=== PATIENT | male | born 1960 | race American Indian/Alaskan Native ===

== ENCOUNTER 2020-11-10 11:24 | Emergency (ER) | payer OTHER, SELFPAY ==
[2020-11-10 11:37] VITALS: BP 156/75; PULSE 88; RESP 22; TEMP 37.1; O2SAT 97
[2020-11-10 11:40] VITALS: BP 148/78; PULSE 88; RESP 24; TEMP 37.1; O2SAT 96
--- NOTE | 2020-11-10 11:47 | DI.RAD.S_ITS ---
PROCEDURE: XR CHEST 1V INDICATIONS: Flu like symptoms TECHNIQUE: One view of the chest was acquired. COMPARISON: None. FINDINGS: Surgical changes and devices: None. Lungs and pleura: Lungs are clear. No pleural effusions or pneumothorax. Mediastinum: Mediastinal contours appear normal. Heart size is normal. Bones and chest wall: No suspicious bony lesions. Overlying soft tissues appear unremarkable. IMPRESSION: Portable chest within normal limits. If there is clinical concern for a developing pulmonary process, a short-term followup chest series (with PA and lateral views, performed in deep inspiration) is suggested for further evaluation. Dictated by: Stephen Marley M.D. on 11/10/2020 at 11:16 Approved by: Stephen Marley M.D. on 11/10/2020 at 11:16
[2020-11-10] MEDS: SODIUM CHLORIDE 0.9% 1,000 ML 1000 ML IV (12:16)
[2020-11-10] MEDS: ONDANSETRON 4 MG/2 ML INJ IV (12:16)
[2020-11-10 12:26] VITALS: PULSE 81; O2SAT 96
[2020-11-10 12:30] VITALS: BP 134/71; PULSE 76; O2SAT 96
[2020-11-10 13:00] VITALS: BP 161/79; PULSE 83; O2SAT 97
[2020-11-10 13:07] LABS: COVID19 -Nasal RAPID POSITIVE (Negative)
--- NOTE | 2020-11-10 13:22 | ED_ITS ---
HPI - URI/Sore Throat <Corbin Alcantar PA-C - Last Filed: 11/10/20 13:32> General Chief Complaint: Upper Respiratory Symptoms Stated Complaint: Headache, cough, weakness Time Seen by Provider: 11/10/20 11:58 Source: patient Mode of arrival: Ambulatory Limitations: no limitations History of Present Illness HPI Narrative: 60-year-old male with no reported past medical history presents to the ED with 6 days of cough, fever. Patient also endorses a generalized headache, 1 episode of diarrhea, all over body aches. Patient endorses being adequately hydrated. Denies chest pain, shortness of breath, nausea, vomiting, dysuria, lightheadedness, dizziness, syncope. Patient unvaccinated for COVID- 19. Related Data Home Medications Medication Instructions Recorded Confirmed Advil 200 mg PO Q8HR PRN 11/10/20 11/10/20 Allergies Allergy/AdvReac Type Severity Reaction Status Date / Time No Known Drug Allergies Allergy Verified 11/10/20 11:43 Review of Systems <Corbin Alcantar PA-C - Last Filed: 11/10/20 13:32> Constitutional Constitutional: Reports chills, Reports fatigue, Reports fever(s), Denies frequent falls, Reports headache(s), Denies lethargy and Denies weakness Eyes Eyes: Denies change in vision, Denies eye discharge, Denies irritation and Denies loss of vision ENT Ears, Nose, Mouth, and Throat: Denies change in voice, Denies dizziness, Reports headache(s), Denies neck pain, Denies sore throat and Denies throat swelling Cardiovascular Cardiovascular: Denies chest pain, Denies irregular heart rhythm, Denies lightheadedness, Denies palpitations, Denies dyspnea, Denies dyspnea on exertion and Denies orthopnea Respiratory Respiratory: Reports cough, Denies dyspnea, Denies dyspnea on exertion and Denies wheezing Gastrointestinal Gastrointestinal: Denies abdominal pain, Denies change in bowel habits, Reports diarrhea, Denies nausea and Denies vomiting Musculoskeletal Musculoskeletal: Denies neck pain and Denies numbness Integumentary/Breasts Skin/Breast: Denies pruritus, Denies erythema, Denies rash and Denies wounds Neurologic Neurologic: Denies behavioral changes, Denies confusion, Denies dizziness, Denies frequent falls, Reports headache(s), Denies loss of vision, Denies numbness and Denies weakness Psychiatric Psychiatric: Denies anxiety, Denies behavioral changes, Denies confusion, Denies depression, Denies homicidal ideation and Denies suicidal ideation Endocrine Endocrine: Reports fatigue, Denies flushing and Denies palpitations Hematologic/Lymphatic Hematologic/Lymphatic: Denies easy bruising Allergic/Immunologic Allergic/Immunologic: Denies urticaria, Denies throat swelling and Denies wheezing Patient History <Corbin Alcantar PA-C - Last Filed: 11/10/20 13:32> Social History Smoking Status: Never smoker Smoking Status: Never smoker alcohol intake frequency: 0-2 drinks per day Substance Use Type: does not use Exam <Corbin Alcantar PA-C - Last Filed: 11/10/20 13:32> Initial Vital Signs Initial Vital Signs: Vital Signs Temperature 98.8 F 11/10/20 11:37 Pulse Rate 88 11/10/20 11:37 Respiratory Rate 22 11/10/20 11:37 Blood Pressure 156/75 H 11/10/20 11:37 Pulse Oximetry 97 11/10/20 11:37 Const General: cooperative HENMT Head: normocephalic and atraumatic Ears: external ears normal and TM's normal bilaterally Nose: external nose normal and No nasal discharge Face and sinus: sinuses nontender, face symmetric, no sinus tenderness and No dry mucous membranes Mouth: oral mucosae normal and moist mucous membranes Teeth and gingiva: dentition normal Throat: tonsils normal and uvula midline Eyes General: appearance normal, both eyes and all related structures Eyelids: eyelids normal Conjunctivae: conjunctivae normal Sclera: sclerae normal Pupils: PERRL EOM: EOM intact bilaterally Neck Neck: normal visual inspection, trachea midline, No lymphadenopathy, No midline deformity and No JVD Lymphatic: No lymphedema Chest Chest: normal inspection of the chest Resp Effort & Inspection: normal respiratory effort, able to speak in complete sentences, no respiratory distress and no use of accessory muscles Auscultation: clear to auscultation bilaterally, no rales, no rhonchi and no wheezes Cardio Rate: regular rate Rhythm: regular rhythm Heart Sounds: no click, no gallops, no murmurs and no rubs Pulses: normal peripheral pulses GI Inspection: non-distended Palpation: soft, no hepatosplenomegaly, No guarding, No pulsatile mass and No tender Auscultation: normal bowel sounds Back/Spine/Pelvis Back: No CVA tenderness Cervical Spine: cervical ROM normal and No pain with cervical ROM Thoracic/Lumbar Spine: thoracic and lumbar spine normal to inspection Skin General: no rashes or lesions noted, No jaundice and No petechiae Neuro General: patient alert, patient oriented x3, gait normal and no focal motor deficits Speech: speech normal Extrem General: full ROM, no clubbing, cyanosis or edema, no pedal edema and no calf tenderness Psych Appearance: well kempt Mental Status: mental status grossly normal Attitude: cooperative Thought Content: normal and suicidality Judgment: judgment good <Cody Newman DO - Last Filed: 11/10/20 16:19> Initial Vital Signs Initial Vital Signs: Vital Signs Temperature 98.8 F 11/10/20 11:37 Pulse Rate 88 11/10/20 11:37 Respiratory Rate 22 11/10/20 11:37 Blood Pressure 156/75 H 11/10/20 11:37 Pulse Oximetry 97 11/10/20 11:37 Course <Corbin Alcantar PA-C - Last Filed: 11/10/20 13:32> Course Course Narrative: COVID 19 positive, stable. Will discharge home with ED return precautions. Orders Ordered: ED Orders 11/10/20 11:42 COVID19 -Nasal swab/Pre-Proc Stat 11/10/20 11:47 XR chest 1V Stat Discontinued Medications Sodium Chloride (Normal Saline 0.9%) 1,000 mls @ 1,000 mls/hr IV BOLUS ONE Stop: 11/10/20 12:46 Last Infusion: 11/10/20 13:16 Dose: 0 mls/hr Documented by: Admin: 11/10/20 12:16 Dose: 1,000 mls/hr Documented by: YEFRI Ondansetron HCl (Ondansetron 4 Mg/2 Ml Inj) 4 mg IV NOW ONE Stop: 11/10/20 11:48 Last Admin: 11/10/20 12:16 Dose: 4 mg Documented by: YEFRI Vital Signs Vital signs: Vital Signs - 8 hr 11/10/20 11:37 11/10/20 11:40 11/10/20 12:26 Temperature 98.8 F 98.8 F Pulse Rate 88 88 81 Respiratory Rate 22 24 Blood Pressure 156/75 H 148/78 H Pulse Oximetry 97 96 96 11/10/20 12:30 11/10/20 13:00 Temperature Pulse Rate 76 83 Respiratory Rate Blood Pressure 134/71 161/79 H Pulse Oximetry 96 97 <Cody Newman DO - Last Filed: 11/10/20 16:19> Orders Ordered: ED Orders 11/10/20 11:42 COVID19 -Nasal swab/Pre-Proc Stat 11/10/20 11:47 XR chest 1V Stat Discontinued Medications Sodium Chloride (Normal Saline 0.9%) 1,000 mls @ 1,000 mls/hr IV BOLUS ONE Stop: 11/10/20 12:46 Last Infusion: 11/10/20 13:16 Dose: 0 mls/hr Documented by: Admin: 11/10/20 12:16 Dose: 1,000 mls/hr Documented by: YEFRI Ondansetron HCl (Ondansetron 4 Mg/2 Ml Inj) 4 mg IV NOW ONE Stop: 11/10/20 11:48 Last Admin: 11/10/20 12:16 Dose: 4 mg Documented by: YEFRI Vital Signs Vital signs: Vital Signs - 8 hr 11/10/20 11:37 11/10/20 11:40 11/10/20 12:26 Temperature 98.8 F 98.8 F Pulse Rate 88 88 81 Respiratory Rate 22 24 Blood Pressure 156/75 H 148/78 H Pulse Oximetry 97 96 96 11/10/20 12:30 11/10/20 13:00 Temperature Pulse Rate 76 83 Respiratory Rate Blood Pressure 134/71 161/79 H Pulse Oximetry 96 97 MDM - URI/Sore Throat <Corbin Alcantar PA-C - Last Filed: 11/10/20 13:32> Lab Data Attestation: I reviewed the patient's lab results. Lab results narrative: Covid-19 positive Labs: Lab Results 11/10/20 Range/Units 11:42 SARS-CoV-2 (PCR) Positive H (Negative) Imaging Data Chest x-ray: Radiologist's Impression: PROCEDURE: XR CHEST 1V INDICATIONS: Flu like symptoms TECHNIQUE: One view of the chest was acquired. COMPARISON: None. FINDINGS: Surgical changes and devices: None. Lungs and pleura: Lungs are clear. No pleural effusions or pneumothorax. Mediastinum: Mediastinal contours appear normal. Heart size is normal. Bones and chest wall: No suspicious bony lesions. Overlying soft tissues appear unremarkable. IMPRESSION: Portable chest within normal limits. If there is clinical concern for a developing pulmonary process, a short-term followup chest series (with PA and lateral views, performed in deep inspiration) is suggested for further evaluation. Dictated by: Stephen Marley M.D. on 11/10/2020 at 11:16 Approved by: Stephen Marley M.D. on 11/10/2020 at 11:16 MDM Narrative Medical decision making narrative: 60-year-old male with no reported past medical history presents to the ED with 6 days of cough, fever. Concern for COVID-19 infection versus other viral syndrome. Will obtain chest x-ray, COVID- 19 test. Will give Zofran and IV fluids for symptoms. Will reassess. Likely discharge home with ED return precautions. <Cody Newman DO - Last Filed: 11/10/20 16:19> Lab Data Labs: Lab Results 11/10/20 Range/Units 11:42 SARS-CoV-2 (PCR) Positive H (Negative) Discharge Plan Departure Patient Disposition: Home Clinical Impression: COVID-19 Instructions: DI for COVID-19 (Suspected or Confirmed ) Activity Restrictions/Additional Instructions: You have been diagnosed positive for COVID 19 infection in the ED today. You may take Tylenol or ibuprofen for symptoms. Stay hydrated by drinking lots of water. Return to the ED if your symptoms worsen, you have trouble breathing, you experience chest pain. Isolate and continue to wear masks past. Prescriptions: No Action Advil 200 mg PO Q8HR PRN (Reason: Pain (Scale Score 4-6)) RF: 0 <DO Twin Roe Last Filed: 11/10/20 16:19> Cosign ED Attending Cosignature Attestation: Dr Newman Co-Sign Statement: I was available for consultation during this patient's emergency department visit. This chart is signed by myself for administrative purposes only. I did not have direct contact with this patient during this visit. They were seen independently by the APC.
== END 2020-11-10 13:24 | disposition home or self-care (01) ==
PROVIDERS: Emergency Medicine; Emergency Provider Student in an Organized Health Care Education/Training Program
DX: U07.1 COVID-19 (principal); R50.9 Fever, unspecified; R05 Cough
CPT/HCPCS: 36415; 71045; 87635; 96361; 96374; 99284; C9803; J2405

== ENCOUNTER 2020-11-13 10:43 | Emergency (ER) | payer OTHER, SELFPAY ==
[2020-11-13 10:54] VITALS: BP 167/75; PULSE 82; RESP 20; TEMP 36.7; O2SAT 100
--- NOTE | 2020-11-13 11:03 | ED_ITS ---
HPI - General Adult General Chief complaint: Upper Respiratory Symptoms Stated complaint: Covid+ lungs hurt when coughing Time Seen by Provider: 11/13/20 10:49 Source: patient Mode of arrival: Ambulatory Limitations: no limitations History of Present Illness HPI narrative: Patient is a 60-year-old male who was seen here in the emergency department a couple days ago was diagnosed with COVID-19. Was subsequently di scharged home. Since that time he states that he has continued to have a cough. This occurs mainly at night. He informed nursing staff in triage he has been having fevers at night but told me that he is not having fevers. No chest pain. He is here because of the continued cough. Related Data Home Medications Medication Instructions Recorded Confirmed Advil 200 mg PO Q8HR PRN 11/10/20 11/10/20 Previous Rx's Medication Instructions Recorded benzonatate 100 mg capsule 100 mg PO TID PRN #21 cap 11/13/20 (Testariq Grajeda) Allergies Allergy/AdvReac Type Severity Reaction Status Date / Time No Known Drug Allergies Allergy Verified 11/10/20 11:43 Review of Systems Constitutional Constitutional: Denies fever(s) Cardiovascular Cardiovascular: Denies chest pain Respiratory Respiratory: Reports cough Integumentary/Breasts Skin/Breast: Reports system reviewed and no additional complaints, except as documented Neurologic Neurologic: Reports system reviewed and no additional complaints, except as documented Hematologic/Lymphatic On Anticoagulants: No Patient History Medical History COVID-19 Social History Smoking Status: Never smoker Smoking Status: Never smoker alcohol intake frequency: 0-2 drinks per day Substance Use Type: does not use Exam Initial Vital Signs Initial Vital Signs: Vital Signs Temperature 98.1 F 11/13/20 10:54 Pulse Rate 82 11/13/20 10:54 Respiratory Rate 20 11/13/20 10:54 Blood Pressure 167/75 H 11/13/20 10:54 Pulse Oximetry 100 11/13/20 10:54 HENMT Head: normal to inspection and normocephalic Resp Effort & Inspection: normal respiratory effort Auscultation: clear to auscultation bilaterally Cardio Rate: regular rate Rhythm: regular rhythm Skin General: no rashes or lesions noted Neuro General: patient alert, patient awake, patient oriented x3 and moves all extremities Extrem General: normal to inspection and capillary refill normal Psych Appearance: grossly normal and well kempt Course Vital Signs Vital signs: Vital Signs - 8 hr 11/13/20 10:54 Temperature 98.1 F Pulse Rate 82 Respiratory Rate 20 Blood Pressure 167/75 H Pulse Oximetry 100 Medical Decision Making MDM Narrative Medical decision making narrative: Patient is not hypoxic. Has clear lung exam. No chest pain. Unfortunately his cough is related to the COVID-19. We will give a prescription for Tessalon Perles although I have low suspicion that this is going to help his symptoms. I did discuss this with him. We did discuss return precautions and follow-up instructions. He expressed understanding and agreement. Discharge Plan Departure Patient Disposition: Home Clinical Impression: COVID-19, Cough Instructions: Coronavirus Disease 2019 Activity Restrictions/Additional Instructions: You do need to continue to quarantine yourself per the CDC guidelines. Unfortunately the coronavirus causes cough. We can try some cough medication which was sent to [facility]. You can use it as directed. There is a chance that this may not help all that much given the nature of the illness. Contact your primary doctor for follow-up. Return to the emergency department for any worsening symptoms. Prescriptions: New benzonatate [Tessalon Perles] 100 mg capsule 100 mg PO TID PRN (Reason: cough) Qty: 21 RF: 0 No Action Advil 200 mg PO Q8HR PRN (Reason: Pain (Scale Score 4-6)) RF: 0
== END 2020-11-13 11:30 | disposition home or self-care (01) ==
PROVIDERS: Emergency Provider Emergency Medicine
DX: U07.1 COVID-19 (principal); R05 Cough
CPT/HCPCS: 99281

== ENCOUNTER 2020-11-18 08:45 | Emergency (ER) | payer OTHER, SELFPAY ==
[2020-11-18 09:02] VITALS: BP 134/67; PULSE 75; RESP 18; TEMP 36.9; O2SAT 97; BMI 30.4
--- NOTE | 2020-11-18 09:14 | DI.RAD.S_ITS ---
PROCEDURE: XR CHEST 2V INDICATIONS: Cough TECHNIQUE: 2 views of the chest were acquired. COMPARISON: [facility], CR, XR CHEST 1V, 11/10/2020, 11:52. FINDINGS: Surgical changes and devices: None. Lungs and pleura: Low lung volumes. Bilateral patchy airspace opacity. No pleural effusions or pneumothorax. Mediastinum: Mediastinal contours are normal. Heart size is normal. Bones and chest wall: No suspicious bony abnormalities. Soft tissues appear unremarkable. IMPRESSION: Bilateral patchy airspace opacity. Suspect multifocal pneumonia. COVID-19 could have this appearance. Dictated by: Navjot Frias M.D. on 11/18/2020 at 8:41 Approved by: Navjot Frias M.D. on 11/18/2020 at 8:42
[2020-11-18 09:33] LABS: COVID19 -Nasal RAPID POSITIVE (Negative)
--- NOTE | 2020-11-18 09:58 | ED_ITS ---
HPI - URI/Sore Throat General Chief Complaint: Upper Respiratory Symptoms Stated Complaint: cough Time Seen by Provider: 11/18/20 09:58 Source: patient Mode of arrival: Ambulatory Limitations: no limitations History of Present Illness HPI Narrative: This is a 60-year-old male who comes emergency department with known COVID infection. Patient states he has had about 10 days of symptoms. Patient states he has had a cough for about 19 days but some he has felt a little bit generally unwell the last 7-10 days. He denies fevers. He denies shortness of breath. He denies chest pain except when he is coughing. He states when he stops coughing resolved. He denies nausea but states that he will have posttussive emesis. Patient states he is able to keep food down +12 hours. He has had normal bowel movements. No urinary issues. No new swelling in his extremities. No lightheadedness or passing out. He states he does not take any medications daily. He denies any prior surgeries. He denies any tobacco, alcohol or illicit drug abuse. He is unvaccinated. His has also been diagnosed is currently hospitalized here as of last night. Related Data Home Medications Medication Instructions Recorded Confirmed Advil 200 mg PO Q8HR PRN 11/10/20 11/10/20 Previous Rx's Medication Instructions Recorded benzonatate 100 mg capsule 100 mg PO TID PRN #21 cap 11/13/20 (Testariq Grajeda) codeine 10 mg-guaifenesin 100 mg/5 5 ml PO Q6H PRN #118 ml 11/18/20 mL oral liquid Allergies Allergy/AdvReac Type Severity Reaction Status Date / Time No Known Drug Allergies Allergy Verified 11/18/20 09:02 Review of Systems Review of Systems ROS Unobtainable: All systems reviewed & are unremarkable except as noted in HPI and below Patient History Medical History COVID-19 Social History Smoking Status: Never smoker Smoking Status: Never smoker alcohol intake frequency: 0-2 drinks per day Substance Use Type: does not use Exam Narrative Exam Narrative: GENERAL: Alert and oriented x three, male in mild distress. HEENT: Head normocephalic, atraumatic, EOMI, pupils reactive, face symmetric, moist mucous membranes NECK: Supple, full range of motion CARDIOVASCULAR: Regular rate and rhythm without murmurs, rubs or gallops. RESPIRATORY: Breath sounds equal bilaterally, no wheezes rales or rhonchi. ABDOMEN: Soft, nontender. Normoactive bowel sounds all 4 quadrants. No guarding or rebound, rigidity, no mass : No CVA tenderness EXTREMITIES: Normal range of motion, no clubbing or edema. Neurovascularly intact NEUROLOGICAL: Cranial nerves II through XII grossly intact. Moving all extremities SKIN: Warm, dry, no petechiae, no rashes or lesions. Initial Vital Signs Initial Vital Signs: Vital Signs Temperature 98.4 F 11/18/20 09:02 Pulse Rate 75 11/18/20 09:02 Respiratory Rate 18 11/18/20 09:02 Blood Pressure 134/67 11/18/20 09:02 Pulse Oximetry 97 11/18/20 09:02 Course Orders Ordered: ED Orders 11/18/20 09:06 COVID19 -Nasal swab/Pre-Proc Stat 11/18/20 09:14 Chest [XR chest 2V] Stat Vital Signs Vital signs: Vital Signs - 8 hr 11/18/20 09:02 11/18/20 10:29 Temperature 98.4 F Pulse Rate 75 74 Respiratory Rate 18 18 Blood Pressure 134/67 130/74 Pulse Oximetry 97 95 MDM - URI/Sore Throat Lab Data Labs: Lab Results 11/18/20 Range/Units 09:06 SARS-CoV-2 (PCR) Positive H (Negative) Imaging Data Chest x-ray: Radiologist's Impression: [address] [address] XRay Report Signed Patient: Anurag Lua MR#: [id number] : 1960 Acct:[id number] Age/Sex: 60 / M Date of Service: 11/18/20 Loc: ED Accession Number: [id number] ?? Procedure: XR chest 2V Ordering Provider: Riana Huggins D.O. PROCEDURE:? XR CHEST 2V ? INDICATIONS:? Cough ? TECHNIQUE:? 2 views of the chest were acquired.? ? COMPARISON:? [facility], KAYLA, XR CHEST 1V, 11/10/2020, 11:52. ? FINDINGS:? ? Surgical changes and devices:? None.? ? Lungs and pleura:? Low lung volumes.? Bilateral patchy airspace opacity.? No pleural effusions or pneumothorax.? ? Mediastinum:? Mediastinal contours are normal.? Heart size is normal.? ? Bones and chest wall:? No suspicious bony abnormalities.? Soft tissues appear unremarkable.? ? IMPRESSION:? Bilateral patchy airspace opacity.? Suspect multifocal pneumonia.? COVID-19 coul d have this appearance. ? ? Dictated by: Navjot Frias M.D. on 11/18/2020 at 8:41 ? ? Approved by: Navjot Frias M.D. on 11/18/2020 at 8:42?? MDM Narrative Medical decision making narrative: This is a 60-year-old male with known COVID. Patient still continues to test positive today. He has had a persistent cough with occasional posttussive emesis. Chest x-ray does show some COVID changes. His vital signs are reassuring. Plan for watchful waiting. Patient was encouraged to obtain a pulse ox to monitor her his oxygen level. Discharge Plan Departure Patient Disposition: Home Clinical Impression: Pneumonia due to 2019 novel coronavirus Instructions: DI for COVID-19 (Suspected or Confirmed ) Activity Restrictions/Additional Instructions: *You have been diagnosed with covid pneumonia If you wish you may obtain a pulse oximeter for use at home to monitor. Please return to the ER if your pulse oximeter shows an O2 saturation less than 94%. Continue home medications as prescribed. You may take cough medication as prescribed this medication does have some narcotic in it. This medication can make you sleepy do not drive, perform hazardous activities or make any major decisions while taking it. This medication will make you constipated please take a stool softener once to twice daily until stools are soft and regular. Prescription sent to [facility] in [place]. Please return for new or worsening chest pain, shortness of breath, lightheadedness or passing out, new swelling of her extremities, rash or skin changes or other new or concerning symptoms. *What to do: * per recommendations from the CDC and the [facility] Department of Health * stay home except to get medical care. Restrict activities outside your home, except for getting medical care. Do not go to work, school, or public areas. Avoid using public transportation, ride sharing, or taxis. * separate yourself from other people in your home. * call ahead before visiting your doctor * Wear a face mask * Cover your coughs and sneezes * Clean your hands often * Avoid sharing household items * Clean all high-touch services every day * Monitor your symptoms and seek prompt medical attention if your illness is worsening, particularly with difficulty in breathing. Discussed continuing home isolation * for individuals with symptoms who are confirmed or suspected cases of COVID-19 and are directed to care for themselves at home, discontinue home isolation under the following conditions: 1. At least 72 hours have passed since recovery, defined as resolution of fever without the use of fever reducing medications, and improvement in respiratory symptoms (cough, shortness of breath) AND, 2. At least 7 days have passed since symptoms 1st appeared Individuals with laboratory confirmed COVID-19 who have not had any symptoms may discontinue home isolation when at least 7 days have passed since the date of their 1st COVID-19 diagnostic test and have had no subsequent illness Prescriptions: New codeine-guaifenesin 10-100 mg/5 mL liquid 5 ml PO Q6H PRN (Reason: pain) Qty: 118 RF: 0 No Action Advil 200 mg PO Q8HR PRN (Reason: Pain (Scale Score 4-6)) RF: 0 benzonatate [Tessalon Perles] 100 mg capsule 100 mg PO TID PRN (Reason: cough) Qty: 21 RF: 0
[2020-11-18 10:29] VITALS: BP 130/74; PULSE 74; RESP 18; O2SAT 95
== END 2020-11-18 10:32 | disposition home or self-care (01) ==
PROVIDERS: Emergency Provider Emergency Medicine
DX: U07.1 COVID-19 (principal); J12.82 Pneumonia due to coronavirus disease 2019
CPT/HCPCS: 71046; 87635; 99283; C9803

== ENCOUNTER → 2021-10-20 14:17 | Outpatient (CLI) | payer OTHER, SELFPAY ==
--- NOTE | 2021-10-20 14:22 | DI.RAD.S_ITS ---
PROCEDURE: XR SHOULDER LT MIN 2V INDICATIONS: Traumatic injury left shoulder, left lower leg TECHNIQUE: 3 views of the shoulder were acquired. COMPARISON: None. FINDINGS: Bones: No fractures or dislocations. No suspicious bony lesions. Visualized ribs appear intact. AC joint degenerative changes are present. Soft tissues: No suspicious soft tissue calcifications. IMPRESSION: No acute osseous abnormality. If symptoms persist, follow-up radiographs and/or CT may be helpful for further evaluation. Dictated by: Kenny Sykes M.D. on 10/20/2021 at 22:12 Approved by: Kenny Sykes M.D. on 10/20/2021 at 22:14
--- NOTE | 2021-10-20 14:22 | DI.RAD.S_ITS ---
PROCEDURE: XR CHEST 2V INDICATIONS: Traumatic injury left shoulder, left lower leg TECHNIQUE: 2 views of the chest were acquired. COMPARISON: [facility], CR, XR CHEST 2V, 11/18/2020, 9:11. FINDINGS: Surgical changes and devices: None. Lungs and pleura: Lungs are clear. No pleural effusions or pneumothorax. Mediastinum: Mediastinal contours are normal. Heart size is normal. Bones and chest wall: No suspicious bony abnormalities. Soft tissues appear unremarkable. IMPRESSION: No acute cardiopulmonary disease. Dictated by: Emilie Banks M.D. on 10/20/2021 at 15:39 Approved by: Emilie Banks M.D. on 10/20/2021 at 15:39
--- NOTE | 2021-10-20 14:22 | DI.RAD.S_ITS ---
PROCEDURE: XR TIBIA FIBULA LT 2V INDICATIONS: Traumatic injury left shoulder, left lower leg TECHNIQUE: 2 views of the tibia and fibula were acquired. COMPARISON: None. FINDINGS: Bones: No fractures or dislocations. No suspicious bony lesions. Soft tissues: No suspicious soft tissue calcifications or masses. There is a metallic foreign body that is either on the patient or in the medial lower calf soft tissues. Degenerative arthritis of the knee. IMPRESSION: Question metallic foreign body. Degenerative arthritis of the knee. Dictated by: Tutu Donahue M.D. on 10/20/2021 at 16:15 Approved by: Tutu Donahue M.D. on 10/20/2021 at 16:16
== END ==
PROVIDERS: PCP Family Medicine; Referring Provider Family Medicine; Visit Provider Family Medicine
DX: M25.512 Pain in left shoulder (principal); M17.12 Unilateral primary osteoarthritis, left knee; M79.605 Pain in left leg; Z77.090 Contact with and (suspected) exposure to asbestos
CPT/HCPCS: 71046; 73030; 73590

== ENCOUNTER 2023-01-06 11:49 | Emergency (ER) | payer OTHER, SELFPAY ==
[2023-01-06 11:56] VITALS: BP 166/78; PULSE 73; RESP 18; TEMP 36.8; O2SAT 98; BMI 29.5
--- NOTE | 2023-01-06 12:02 | DI.RAD.S_ITS ---
PROCEDURE: XR KNEE RT 3V INDICATIONS: pain and swelling TECHNIQUE: 3 views of the knee were acquired. COMPARISON: None. FINDINGS: Bones: No acute fractures. Mild medial and lateral compartment joint space loss. Mild lateral patellar subluxation and prominent patellofemoral compartment joint space loss. Moderate tricompartment spurs. Soft tissues: Small joint effusion. Trace chondrocalcinosis seen in the medial and lateral compartments. IMPRESSION: 1. Small joint effusion of uncertain chronicity. 2. Patellofemoral compartment joint space loss and lateral patellar subluxation. Correlate clinically. 3. Tricompartment osteoarthritic change. Dictated by: Emilie Banks M.D. on 01/06/2023 at 12:57 Approved by: Emilie Banks M.D. on 01/06/2023 at 12:58
--- NOTE | 2023-01-06 13:38 | ED_ITS ---
HPI - Extremity Injury (Lower) <Bakari Reynolds PA-C - Last Filed: 01/06/23 14:12> General Chief Complaint: Extremity Injury, Lower Stated Complaint: R/knee pain/ swollen Time Seen by Provider: 01/06/23 13:37 History of Present Illness HPI Narrative: this is a 62-year-old male presenting to the emergency department complaining of right knee pain after working on his knees in the gravel yesterday. He states that he is got a somewhat chronic history of knee pain but worsened after working in his knees. Denies any numbness, rashes, decreases in range of motion, or any other concerning signs or symptoms. Related Data Home Medications Medication Instructions Recorded Confirmed Advil 200 mg PO Q8HR PRN Pain (Scale 11/10/20 07/23/22 Score 4-6) Previous Rx's Medication Instructions Recorded hydrocodone 5 mg-acetaminophen 325 1 tab PO TID PRN pain #20 tabs 10/20/21 mg tablet naproxen 500 mg tablet 500 mg PO BID PRN pain #30 tabs 10/20/21 indomethacin 50 mg capsule 50 mg PO TID PRN Pain #30 caps 07/23/22 methocarbamol 500 mg tablet 500 mg PO TID PRN muscle spasm #30 07/23/22 tabs Allergies Allergy/AdvReac Type Severity Reaction Status Date / Time No Known Drug Allergies Allergy Verified 01/06/23 12:01 Review of Systems <Bakari Reynolds PA-C - Last Filed: 01/06/23 14:12> Review of Systems Narrative: GENERAL: Denies chills, fatigue, malaise, fever, sweats. HEENT: Denies sinus pain, ear pain, sore throat, difficulty swallowing, dizziness. RESPIRATORY: Denies dyspnea, cough, wheezing, hemoptysis, sputum. CARDIOVASCULAR: Denies chest pain, palpitations, orthopnea, edema, GASTROINTESTINAL: Denies nausea, vomiting, abdominal pain, diarrhea, constipation, melena. : Denies dysuria, frequency, incontinence, hematuria, urinary retention. MUSCULOSKELETAL: Reports right knee pain, otherwise denies weakness, joint pain, or bony pain SKIN: Denies rash, skin lesions, or other NEUROLOGIC: Denies weakness, headache, numbness, change in speech, confusion, seizures, incoordination. PSYCHIATRIC: No concerning psychosocial issues. 12 point review of systems is negative except for those stated above Patient History <Bakari Reynolds PA-C - Last Filed: 01/06/23 14:12> Medical History Adhesive capsulitis COVID-19 History of asbestos exposure Left leg pain Left shoulder pain Family History Father Diabetes mellitus Brother Diabetes mellitus Kidney disease Sister Cancer Social History Smoking Status: Never smoker Smoking Status: Never smoker alcohol intake frequency: 0-2 drinks per day Substance Use Type: does not use Exam <Bakari Reynolds PA-C - Last Filed: 01/06/23 14:12> Narrative Exam Narrative: GENERAL: Well-developed patient, in mild distress. HEAD: Atraumatic. Normocephalic. EYES: Pupils equal round and reactive. Extraocular motions intact. No scleral icterus. No injection or drainage. ENT: Nose without bleeding, purulent drainage. Throat without erythema, tonsillar hypertrophy or exudate. Airway patent. NECK: Trachea midline. Non tender CARDIOVASCULAR: Regular rate and rhythm without murmurs, gallops, or rubs. RESPIRATORY: Clear to auscultation. Breath sounds equal bilaterally. No wheezes, rales, or rhonchi. GASTROINTESTINAL: Abdomen soft, non-tender, nondistended. EXTREMITIES: Generalized tenderness to palpation of the right knee, range of motion decreased secondary to pain, no joint stiffness No edema or joint tenderness. BACK: Nontender without deformity or crepitance. No flank tenderness. NEURO: AOx3. SKIN: No rash or erythema of visible areas Initial Vital Signs Initial Vital Signs: Vital Signs Temperature 98.3 F 01/06/23 11:56 Pulse Rate 73 01/06/23 11:56 Respiratory Rate 18 01/06/23 11:56 Blood Pressure 166/78 H 01/06/23 11:56 Pulse Oximetry 98 01/06/23 11:56 Oxygen Delivery Method Room Air 01/06/23 11:56 <Riana Huggins DO - Last Filed: 01/07/23 07:34> Initial Vital Signs Initial Vital Signs: Vital Signs Temperature 98.3 F 01/06/23 11:56 Pulse Rate 73 1105/23 11:56 Respiratory Rate 18 01/06/23 11:56 Blood Pressure 166/78 H 01/06/23 11:56 Pulse Oximetry 98 01/06/23 11:56 Oxygen Delivery Method Room Air 01/06/23 11:56 Course <Bakari Reynolds PA-C - Last Filed: 01/06/23 14:12> Orders Ordered: ED Orders 01/06/23 12:02 XR knee RT 3V Stat Vital Signs Vital signs: Vital Signs - 8 hr 01/06/23 11:56 Temperature 98.3 F Pulse Rate 73 Respiratory Rate 18 Blood Pressure 166/78 H Pulse Oximetry 98 Oxygen Delivery Method Room Air <Riana Huggins DO - Last Filed: 01/07/23 07:34> Orders Ordered: ED Orders 01/06/23 12:02 XR knee RT 3V Stat Vital Signs Vital signs: Vital Signs - 8 hr 01/06/23 11:56 Temperature 98.3 F Pulse Rate 73 Respiratory Rate 18 Blood Pressure 166/78 H Pulse Oximetry 98 Oxygen Delivery Method Room Air MDM - Extremity Injury (Lower) <Bakari Reynolds PA-C - Last Filed: 01/06/23 14:12> Imaging Data Extremity x-ray #1: Radiologist's Impression: [place] [address] XRay Report Signed Patient: Anurag Lua MR#: [id number] : 1960 Acct:[id number] Age/Sex: 62 / M Date of Service: 01/06/23 Loc: ED Accession Number: [id number] Procedure: XR knee RT 3V Ordering Provider: Riana Huggins D.O. PROCEDURE: XR KNEE RT 3V INDICATIONS: pain and swelling TECHNIQUE: 3 views of the knee were acquired. COMPARISON: None. FINDINGS: Bones: No acute fractures. Mild medial and lateral compartment joint space loss. Mild lateral patellar subluxation and prominent patellofemoral compartment joint space loss. Moderate tricompartment spurs. Soft tissues: Small joint effusion. Trace chondrocalcinosis seen in the medial and lateral compartments. IMPRESSION: 1. Small joint effusion of uncertain chronicity. 2. Patellofemoral compartment joint space loss and lateral patellar subluxation. Correlate clinically. 3. Tricompartment osteoarthritic change. Dictated by: Emilie Banks M.D. on 01/06/2023 at 12:57 Approved by: Emilie Banks M.D. on 01/06/2023 at 12:58 MDM Narrative Medical decision making narrative: MDM * differential diagnosis includes but not limited to patellar fracture, knee sprain, ligament injury * Prior records reviewed: Patient has not been here for similar symptoms in the past * My lab interpretation: None obtained * My imgaing interpretation: Right knee x-ray shows evidence of osteoarthritis and discussed possible patellar subluxation although on exam no concern for any kind of patellar dislocation * Clinical Decision Rules/Scores evaluated: None * Independent discussions with: None ED Course: This is a 62-year-old male presents emergency department due to worsening acute on chronic right knee pain after working in his knees yesterday. X-ray showed no evidence of any acute fractures but did show evidence of osteoarthritis. Discussed this with the patient and recommended speak in his primary care provider for a referral to Orthopedics for long-term management and care of his chronic knee pain. Shared Decision Making: Discussed plan with the patient who is comfortable with the plan. Social Considerations: None Disposition: Discharged home Discharge Plan Departure Patient Disposition: Home Clinical Impression: Osteoarthritis Instructions: DI for Knee Sprain Activity Restrictions/Additional Instructions: Thank you for coming to the [facility] Emergency Department today. As we discussed there were no fractures to your right knee area. Your x-rays did show evidence of osteoarthritis. I recommend you speak with the primary care provider for a possible referral to Orthopedics for further management care of your knee pain continues. For now I recommend ibuprofen, ice, rest and elevation. I hope you feel better soon. Please follow up with your primary care provider within a week if your symptoms continue. If you do not have a primary care provider please contact the [facility] Resource line at [phone]. They will ask some questions about your medical history and help you get set up with a provider in the community. Prescriptions: No Action hydrocodone-acetaminophen 5-325 mg tablet 1 tab PO TID PRN (Reason: pain) Qty: 20 0RF naproxen 500 mg tablet 500 mg PO BID PRN (Reason: pain) Qty: 30 0RF indomethacin 50 mg capsule 50 mg PO TID PRN (Reason: Pain) Qty: 30 1RF Rx Instructions: administer with food or milk methocarbamol 500 mg tablet 500 mg PO TID PRN (Reason: muscle spasm) Qty: 30 0RF Advil 200 mg PO Q8HR PRN (Reason: Pain (Scale Score 4-6)) Referrals: Alejandro Wolff DO [Primary Care Provider] - Stand Alone Forms: Patient Portal/API ED Sign-out <Riana Huggins DO - Last Filed: 01/07/23 07:34> Cosign ED Attending Kay Attestation: I was immediately available in the department for consultation.
[2023-01-06 14:24] VITALS: BP 162/65; PULSE 72; RESP 18; TEMP 36.7; O2SAT 97
== END 2023-01-06 14:24 | disposition home or self-care (01) ==
PROVIDERS: Emergency Provider Physician Assistant Medical; PCP Family Medicine
DX: M17.11 Unilateral primary osteoarthritis, right knee (principal)
CPT/HCPCS: 73562; 99283

== ENCOUNTER 2023-11-05 15:58 | Emergency (ER) | payer OTHER, SELFPAY ==
[2023-11-05 16:02] VITALS: BP 169/81; PULSE 74; RESP 16; TEMP 36.6; O2SAT 97; BMI 24.3
--- NOTE | 2023-11-05 16:32 | DI.RAD.S_ITS ---
PROCEDURE: XR KNEE LT 3V INDICATIONS: Fall TECHNIQUE: 3 views of the knee were acquired. COMPARISON: [facility], CR, XR KNEE RT 3V, 01/06/2023, 12:05. FINDINGS: Bones: Moderate degenerative changes most significant in the patellofemoral compartment. There are intra-articular and periarticular ossified bodies. No acute displaced fracture or dislocation. Soft tissues: Small joint effusion. IMPRESSION: Degenerative changes and intra-articular and periarticular age-indeterminate ossified bodies. Small joint effusion. If there is high concern for occult injury, consider repeat radiography or cross-sectional imaging. Dictated by: Edd Mcnamara M.D. on 11/05/2023 at 17:11 Approved by: Edd Mcnamara M.D. on 11/05/2023 at 17:12
--- NOTE | 2023-11-05 16:32 | DI.RAD.S_ITS ---
PROCEDURE: XR KNEE RT 3V INDICATIONS: Fall TECHNIQUE: 3 views of the knee were acquired. COMPARISON: [facility], CR, XR KNEE RT 3V, 01/06/2023, 12:05. FINDINGS: Bones: Moderate degenerative changes particularly at the patellofemoral joint. Soft tissues: No suspicious calcifications. Possible intra-articular and periarticular bone fragments. Patellar enthesopathy. Joint effusion. IMPRESSION: Degenerative changes most significant at the patellofemoral compartment. Joint effusion. Intra-articular and periarticular ossified bodies. If there is high concern for occult injury, consider repeat radiography or cross-sectional imaging. Dictated by: Edd Mcnamara M.D. on 11/05/2023 at 17:09 Approved by: Edd Mcnamara M.D. on 11/05/2023 at 17:11
[2023-11-05] MEDS: KETOROLAC 30 MG/ML VIAL IM (16:40)
--- NOTE | 2023-11-05 16:46 | ED_ITS ---
HPI - Extremity Injury (Lower) <Corbin Alcantar PA-C - Last Filed: 11/05/23 18:06> General Chief Complaint: Extremity Injury, Lower Stated Complaint: Fall, knee px Time Seen by Provider: 11/05/23 16:25 Source: patient Mode of arrival: Ambulatory History of Present Illness HPI Narrative: 63-year-old male with past medical history osteoarthritis, chronic bilateral knee pain presents to the ED status post a mechanical fall sustained just prior to arrival. Patient states that he was trying to walk-in to the tent, when he did not notice a rope tied close to the floor, tripped on it and fell on both knees. Patient states that since then his knees have felt swollen and painful. Patient states it is difficult for him to walk due to the pain. No numbness, tingling, weakness. Patient does have some pre-existing chronic knee osteoarthritis for which he is being evaluated by his primary care doctor Dr. Alejandro Wolff. Related Data Home Medications Medication Instructions Recorded Confirmed Advil 200 mg PO Q8HR PRN Pain (Scale 11/10/20 05/03/23 Score 4-6) Previous Rx's Medication Instructions Recorded methocarbamol 500 mg tablet 500 mg PO BEDTIME PRN knee pain 02/12/23 #30 tabs tramadol 50 mg tablet 50 mg PO BEDTIME PRN pain #30 tabs 05/03/23 naproxen 500 mg tablet 500 mg PO BID PRN for pain #60 tabs 06/11/23 tramadol 50 mg tablet 50 mg PO TID PRN pain #10 tabs 11/05/23 Allergies Allergy/AdvReac Type Severity Reaction Status Date / Time No Known Drug Allergies Allergy Verified 05/03/23 16:41 Review of Systems <Corbin Alcantar PA-C - Last Filed: 11/05/23 18:06> Constitutional Constitutional: Denies chills, Denies fatigue, Denies fever(s), Denies frequent falls, Denies lethargy and Denies weakness Eyes Eyes: Denies change in vision, Denies eye discharge, Denies irritation and Denies loss of vision ENT Ears, Nose, Mouth, and Throat: Denies change in voice, Denies dizziness, Denies neck pain, Denies sore throat and Denies throat swelling Cardiovascular Cardiovascular: Denies chest pain, Denies irregular heart rhythm, Denies lightheadedness, Denies palpitations, Denies dyspnea, Denies dyspnea on exertion and Denies orthopnea Respiratory Respiratory: Denies cough, Denies dyspnea, Denies dyspnea on exertion and Denies wheezing Gastrointestinal Gastrointestinal: Denies abdominal pain, Denies change in bowel habits, Denies diarrhea, Denies nausea and Denies vomiting Musculoskeletal Musculoskeletal: Denies neck pain and Denies numbness Comments: Bilateral knee pain Integumentary/Breasts Skin/Breast: Denies pruritus, Denies erythema, Denies rash and Denies wounds Neurologic Neurologic: Denies behavioral changes, Denies confusion, Denies dizziness, Denies frequent falls, Denies loss of vision, Denies numbness and Denies weakness Psychiatric Psychiatric: Denies anxiety, Denies behavioral changes, Denies confusion, Denies depression, Denies homicidal ideation and Denies suicidal ideation Endocrine Endocrine: Denies fatigue, Denies flushing and Denies palpitations Hematologic/Lymphatic Hematologic/Lymphatic: Denies easy bruising Allergic/Immunologic Allergic/Immunologic: Denies urticaria, Denies throat swelling and Denies wheezing Patient History <Corbin Alcantar PA-C - Last Filed: 11/05/23 18:06> Medical History Acute maxillary sinusitis Bilateral knee pain Adhesive capsulitis Left leg pain History of asbestos exposure Left shoulder pain COVID-19 Family History Father Diabetes mellitus Brother Diabetes mellitus Kidney disease Sister Cancer Social History Smoking Status: Never smoker Smoking Status: Never smoker alcohol intake frequency: 0-2 drinks per day Substance Use Type: marijuana Exam <Corbin Alcantar PA-C - Last Filed: 11/05/23 18:06> Narrative Exam Narrative: Const General:?cooperative, healthy appearing and comfortable [facility] Head:?normal to inspection Ears:?hearing grossly normal bilaterally Nose:?external nose normal Face and sinus:?normal facial exam and sinuses nontender Mouth:?oral mucosae normal Throat:?posterior oropharynx normal Eyes General:?appearance normal, both eyes and all related structures Neck Neck:?normal visual inspection and no lymphadenopathy noted Resp Effort & Inspection:?normal respiratory effort Auscultation:?clear to auscultation bilaterally Cardio Rate:?regular rate Rhythm:?regular rhythm Musculoskeletal Mild swelling of bilateral knees. No deformities. There is some tenderness to palpation on the anterior aspects. Skin is intact. Patient is able to bear weight and walk. There is full range of motion. Strength and sensation is intact. Patient is neurovascularly intact. Neuro General:?patient alert, patient awake and patient oriented x3 Initial Vital Signs Initial Vital Signs: Vital Signs Temperature 97.8 F 11/05/23 16:02 Pulse Rate 74 11/05/23 16:02 Respiratory Rate 16 11/05/23 16:02 Blood Pressure 169/81 H 11/05/23 16:02 Pulse Oximetry 97 11/05/23 16:02 Oxygen Delivery Method Room Air 11/05/23 16:02 <Riana Huggins DO - Last Filed: 11/05/23 18:24> Initial Vital Signs Initial Vital Signs: Vital Signs Temperature 97.8 F 11/05/23 16:02 Pulse Rate 74 11/05/23 16:02 Respiratory Rate 16 11/05/23 16:02 Blood Pressure 169/81 H 11/05/23 16:02 Pulse Oximetry 97 11/05/23 16:02 Oxygen Delivery Method Room Air 11/05/23 16:02 Course <Corbin Alcantar PA-C - Last Filed: 11/05/23 18:06> Orders Ordered: ED Orders 11/05/23 16:32 XR knee LT 3V Stat XR knee RT 3V Stat Discontinued Medications Ketorolac Tromethamine (Ketorolac 30 Mg/Ml Vial) 30 mg IM NOW ONE Stop: 11/05/23 16:34 Last Admin: 11/05/23 16:40 Dose: 30 mg Documented By: KM Vital Signs Vital signs: Vital Signs - 8 hr 11/05/23 16:02 Temperature 97.8 F Pulse Rate 74 Respiratory Rate 16 Blood Pressure 169/81 H Pulse Oximetry 97 Oxygen Delivery Method Room Air <Riana Huggins DO - Last Filed: 11/05/23 18:24> Orders Ordered: ED Orders 11/05/23 16:32 XR knee LT 3V Stat XR knee RT 3V Stat Discontinued Medications Ketorolac Tromethamine (Ketorolac 30 Mg/Ml Vial) 30 mg IM NOW ONE Stop: 11/05/23 16:34 Last Admin: 11/05/23 16:40 Dose: 30 mg Documented By: MATT Vital Signs Vital signs: Vital Signs - 8 hr 11/05/23 16:02 Temperature 97.8 F Pulse Rate 74 Respiratory Rate 16 Blood Pressure 169/81 H Pulse Oximetry 97 Oxygen Delivery Method Room Air MDM - Extremity Injury (Lower) <Corbin Alcantar PA-C - Last Filed: 11/05/23 18:06> MDM Narrative Medical decision making narrative: 63-year-old male with past medical history osteoarthritis, chronic bilateral knee pain presents to the ED status post a mechanical fall sustained just prior to arrival. Concern for fracture/dislocation versus musculoskeletal sprain/strain versus other. X-rays were obtained which show no acute fractures or dislocations. There is some evidence of osteoarthritis. Discussed findings with patient. Patient can continue wearing the knee braces for comfort, apply lidocaine patches, take Tylenol, ibuprofen. Prescribed a short dose of tramadol for pain relief. Recommend follow-up with PCP Dr. Alejandro Wolff as soon as possible. ED return precautions discussed with patient. Patient verbalized understanding. Medical records reviewed: Yes Discharge Plan Departure Patient Disposition: Home Clinical Impression: Knee pain Qualifiers: Chronicity: acute Laterality: bilateral Qualified Code(s): M25.561 - Pain in right knee Instructions: DI for Knee Pain Activity Restrictions/Additional Instructions: You were evaluated in the ED for knee pain from a fall. Your x-rays did not show any fractures or dislocations. They do show osteoarthritis. You have suffered a knee sprain/contusion from the fall today. You may continue to wear your knee braces, take ibuprofen, Tylenol, apply lidocaine patches for the knee pain. Please follow-up with Dr. Wolff as soon as possible for further evaluation. Return to the ED if you have worsening symptoms, numbness, tingling, weakness. Prescriptions: New tramadol 50 mg tablet 50 mg PO TID PRN (Reason: pain) Qty: 10 0RF No Action naproxen 500 mg tablet 500 mg PO BID PRN (Reason: for pain) Qty: 60 0RF methocarbamol 500 mg tablet 500 mg PO BEDTIME PRN (Reason: knee pain) Qty: 30 0RF tramadol 50 mg tablet 50 mg PO BEDTIME PRN (Reason: pain) Qty: 30 1RF Advil 200 mg PO Q8HR PRN (Reason: Pain (Scale Score 4-6)) Referrals: Alejandro Wolff DO [Primary Care Provider] - Stand Alone Forms: Patient Portal/API ED Sign-out <Riana Huggins DO - Last Filed: 11/05/23 18:24> Cosign ED Attending Cosignature Attestation: I was immediately available in the department for consultation.
== END 2023-11-05 17:26 | disposition home or self-care (01) ==
PROVIDERS: Emergency Provider Student in an Organized Health Care Education/Training Program; PCP Family Medicine
DX: M25.561 Pain in right knee (principal); M25.562 Pain in left knee; W01.0XXA Fall on same level from slipping, tripping and stumbling without subsequent striking against object, initial encounter
CPT/HCPCS: 73562; 96372; 99283; J1885